=== PATIENT | male | born 1960 | race African-American/Black ===

== ENCOUNTER 2016-10-27 08:41 | Day surgery (SDC) | payer BC ==
[2016-10-26 10:11] VITALS: BMI 34.0
--- NOTE | 2016-10-26 12:12 | HP ---
DATE OF ADMISSION: 10/27/2016. Patient to be admitted through the [facility] on 01/2017. HISTORY: This is a 56-year-old man who was referred by his PMD for evaluation of ventral hernia. On examination, he has an obvious ventral hernia involving the central ring of the abdomen extending up into the supraumbilical midline. He also has a more superior diastasis recti. He presents at this juncture for repair of his chronically incarcerated ventral hernia. No underlying GI, , or respiratory complaints to suggest predisposition to hernia formation. Patient's past medical history is significant for hypercholesterolemia as well as glaucoma. No known history of diabetes; heart disease; respiratory, renal or hepatic insufficiency. Past surgical history is significant for management of both a fractured nose as well as management of a torn knee meniscus. He does have herniated disks in his low back and did have a cortisone shot as recent as November of this year. ALLERGIES: None known. REGULAR MEDICATIONS: None. SOCIAL HISTORY: Negative for tobacco. Patient was a former smoker but has not smoked in quite some time. Positive alcohol a couple times weekly. FAMILY HISTORY: Father age 84, history of dementia and hypertension; mother age 88, history of CVA. Siblings x3 with no medical history. REVIEW OF SYSTEMS: Nil. PHYSICAL EXAMINATION: The patient is examined in the erect position. There is an obvious hernia involving the central ring of the abdomen extending up into the supraumbilical midline. In the supine position, it is partially but not entirely reducible. More superiorly in the midline there is a diastasis recti. There is no obvious herniation above the supraumbilical component. IMPRESSION: Chronically incarcerated ventral hernia, diastasis recti. PLAN: Reduction and repair of chronically incarcerated ventral hernia with mesh. Indications, alternatives, possible complications reviewed. Consent obtained. Patient to be seen preoperatively by Dr. Zapata. Please refer to Dr. Zapata's history and physical for the patient's general medical evaluation and details. CODIE WALSH M.D. [id number] cc: Gavino Zapata MD [facility]
[2016-10-27] MEDS ORDERED: TAMSULOSIN HCL 0.4 MG CAP.ER.24H (FP) ONE (09:12)
[2016-10-27] MEDS ORDERED: PROPOFOL 20 ML ONE ×3 (10:36→12:28)
[2016-10-27] MEDS ORDERED: DEXAMETHASONE SOD PHOSPHATE 4 MG/1 ML VIAL ONE (10:37)
[2016-10-27] MEDS ORDERED: ROCURONIUM BROMIDE 50 MG/5 ML VIAL ONE ×3 (10:37→11:36)
[2016-10-27] MEDS ORDERED: ONDANSETRON 4 MG/2 ML VIAL ONE ×2 (10:37→12:57)
[2016-10-27] MEDS ORDERED: LIDOCAINE HCL/PF 2% SDV 5ML VIAL ONE (10:37)
[2016-10-27] MEDS ORDERED: LIDOCAINE HCL 2% JELLY (5 ML/TUBE) ONE (10:46)
[2016-10-27] MEDS ORDERED: ePHEDrine SULFATE 50 MG/1 ML AMPULE ONE (10:54)
[2016-10-27] MEDS ORDERED: SUCCINYLCHOLINE CHLORIDE 200 MG/10 ML VIAL ONE (10:54)
[2016-10-27] MEDS ORDERED: MIDAZOLAM HCL 2 MG/2 ML SINGLE DOSE VIAL ONE (10:57)
[2016-10-27] MEDS ORDERED: NEOSTIGMINE METHYLSULFATE 0.5 MG/ML - 10 ML MDV ONE (12:10)
[2016-10-27] MEDS ORDERED: ONDANSETRON 4 MG/2 ML VIAL IVPUSH ONE (13:03)
--- NOTE | 2016-10-27 13:08 | OP ---
DATE OF OPERATION: 10/27/2016 PREOPERATIVE DIAGNOSIS: Chronically incarcerated ventral hernia. POSTOPERATIVE DIAGNOSIS: Chronically incarcerated ventral hernia. PROCEDURE: Reduction and repair of chronically incarcerated ventral hernia with mesh. OPERATING SURGEON: Codie Doran MD ENVIRONMENTAL OFFICER: Marcell Cuba DO ANESTHESIA: Orville Nickerson MD (general) HISTORY: This is a 56-year-old man who was admitted to the hospital for repair of an enlarging ventral hernia. Indications, alternatives, and possible complications reviewed. Consent obtained. PROCEDURE: With the patient in the supine position, and after general anesthesia, the abdomen was prepped and draped in the usual sterile fashion using chlorhexidine. A 5-cm infraumbilical incision was made and deepened into the subcutaneous space. The hernia sac was easily encountered. The sac was followed to the level of the fascial ring. The hernia involved not only the of the abdomen but a portion of the supraumbilical midline. After the fascial ring was incised, the hernia contained fibrofatty material as its contents and was entirely reduced. Using sharp dissection, the retrorectus/preperitoneal space was developed to create enough room for placement of an underlay mesh. Ultimately, an 8-cm diameter Bard Ventralex ST hernia patch was selected for the repair. The patch was placed in the retrorectus/preperitoneal space and pulled up against the undersurface of the abdominal rectus musculature with its straps. The mesh was fixed in each of its 4 quadrants with [id number] 0 Prolene sutures, fixing the mesh to the overlying rectus musculature. The wound was then irrigated and adequate hemostasis assured. The fascia was closed in a transverse fashion using interrupted 0 Vicryl sutures, leaving the patch entirely in the preperitoneal space. Subcutaneous tissues were irrigated and adequate hemostasis assured. The wound was closed in layers. The subcutaneous tissues were approximated using interrupted 3-0 Vicryl sutures. The subcuticular layer was approximated with 4-0 Biosyn suture. Skin was closed using 4-0 Biosyn in the subcuticular space in continuous fashion. Mastisol and Dermabond applied and the procedure terminated. INSTRUMENT COUNT: Correct. ESTIMATED BLOOD LOSS: Minimal. SPECIMEN: None. DRAINS: None. IMPLANT: Bard Ventralex ST hernia patch (8-cm diameter). CODIE DORAN M.D. [id number] cc: Gavino Zapata MD MTDD
[2016-10-27] MEDS ORDERED: ONDANSETRON 4 MG/2 ML VIAL IVPUSH PRN (14:24)
[2016-10-27] MEDS ORDERED: oxyCODONE HCL 5 MG TABLET PO PRN ×2 (14:24)
[2016-10-27] MEDS ORDERED: LACTATED RINGERS SOLUTION 1,000 ML IV SCH (14:30)
[2016-10-27] MEDS ORDERED: oxyCODONE HCL 5 MG TABLET ONE (14:55)
[2016-10-27 15:39] VITALS: TEMP 97.7
[2016-10-27 15:42] VITALS: PULSE 74
[2016-10-27 16:54] VITALS: BP 136/76
== END 2016-10-27 16:25 | disposition home or self-care (01) ==
LOC: FASU 08:41
PROVIDERS: ATTEND Surgery
PROC: 0WUF0JZ Supplement Abdominal Wall with Synthetic Substitute, Open Approach (ICD-10-PCS; principal; 2016-10-27 11:34)
DX: K43.6 Other and unspecified ventral hernia with obstruction, without gangrene (principal)
CPT/HCPCS: 94010; 94760

== ENCOUNTER 2021-05-06 14:04 | Emergency (ER) | payer OTHER ==
[2021-05-06 14:24] VITALS: BP 146/88; PULSE 92; TEMP 98; BMI 34.0
== END 2021-05-06 16:38 | disposition home or self-care (01) ==
LOC: JERFT 14:04
DX: S80.12XA Contusion of left lower leg, initial encounter (principal); S63.92XA Sprain of unspecified part of left wrist and hand, initial encounter
CPT/HCPCS: 73110-TC-LT-FY; 73130-TC-LT-FY; 73560-TC-LT-FY; 99284-25